=== PATIENT | female | born 1995 | race Caucasian/White ===

== ENCOUNTER 2020-12-12 10:09 | Inpatient (IN) | payer OTHER ==
--- NOTE | 2020-12-13 00:25 | NUR ---
INTERPATH RAPID COVID TEST DONE PER ORDER. COVID TEST COLLEDTED FROM BOTH NARES W/O ISSUE. PT TOLERATED WELL.
[2020-12-13] MEDS ORDERED: PRENATAL VITAM1 EACH PO (01:50)
[2020-12-13] MEDS ORDERED: MAGNESIUM400 MG PO (01:51)
[2020-12-13] MEDS ORDERED: PROMETHAZINE HC25 M1 PO (01:52)
--- NOTE | 2020-12-14 14:11 | NUR ---
12/14/20 1411 Tonia Sinha 1400: PT ARRIVES TO ROOM 103 FOR PACU RECOVERY. DROWSY, VSS. O2 SATS >95% ON RA. RESP EVEN AND UNLABORED. GAONA DRAINING AT THE BEDSIDE
--- NOTE | 2020-12-15 11:58 | OR ---
[facility] [address], [place] [address] Signed DATE OF OPERATION: 12/14/2020 SURGEON: Yosef Molina MD PREOPERATIVE DIAGNOSES: Failure to descend, cephalopelvic disproportion with posterior presentation and non-reassuring heart rate tracing. POSTOPERATIVE DIAGNOSES: Failure to descend, cephalopelvic disproportion with posterior presentation and non-reassuring heart rate tracing. PROCEDURE: Primary low transverse segment section, delivery of live male . AUTOMATION AND CONTROLS MANAGER: Zacarias Urena DO. ANESTHESIA: Epidural. ESTIMATED BLOOD LOSS: 700 mL. COMPLICATIONS: None. DRAINS: Ma to bladder. FINDINGS: Live male , Apgars 8 and 9. Weight 8 pounds 10 ounces. was noted to be in vertex ROP presentation. The 's head was wedged tightly in the pelvis. Normal uterus. Normal tubes and ovaries bilateral. DESCRIPTION OF PROCEDURE: The patient was brought to the operating room, placed in supine position. The patient already had epidural, which was re-dosed and the patient was prepped and draped in usual sterile fashion. The patient already had a Ma catheter in bladder. After verifying adequate anesthesia from the epidural, a Pfannenstiel skin incision was made with a Electronically Signed By: YOSEF MOLINA MD 12/15/20 1158 PATIENT NAME: JOSEFINA BELL OPERATIVE REPORT DATE OF : [birth year] REPORT #: [id number] PHYSICIAN: YOSEF MOLINA MD PCP: NO PRIMARY CARE PHYSICIAN REPORT IS CONFIDENTIAL AND NOT TO BE RELEASED WITHOUT AUTHORIZATION [facility] [address], [place] [address] Signed scalpel. Subcutaneous tissue was dissected with the Bovie. The fascia was nicked with scalpel and extended in transverse fashion using curved scissors. The underlying abdominal musculature was bluntly and sharply from the fascia above and below the incision. The abdominal musculature was bluntly sharply along the midline. The peritoneum was grasped with hemostats, elevated, nicked with curved scissors and extended in a vertical fashion using curved scissors. The Sudhir self-retaining retractor was inserted into the incision and tightened in place. The lower uterine segment was identified. The bladder noted to be below the area of dissection. A small incision was made in the lower uterine segment using a scalpel and the incision extended in transverse fashion using finger dissection. Moderate meconium was seen coming out of the incision. The infant was noted to be in vertex ROP presentation with the head tightly wedged in the pelvis, a hand was carefully brought down above the head and the head elevated and then delivered through the incision. The rest of the infant was easily delivered through the incision. The cord was doubly clamped and cut. The passed off table in good condition to awaiting nurse. The placenta was manually removed and uterine cavity explored with a lap pad to remove any retained membranes. Small extension of the incision was noted on the left side. This was closed using running locking stitch of 0 Monocryl suture. An angle stitch of 0 Monocryl was placed at one in the incision and a running locking stitch of 0 Monocryl then used to close the transverse incision. A 2nd running locking stitch of 0 Monocryl was used to imbricate the 1st layer. The entire pelvis was irrigated, suctioned, and examined, and superficial bleeding spots cauterized with the Bovie. There were some raw areas, but no active bleeding. So, after irrigation, Charlotte was sprinkled over the lower uterine segment to help with hemostasis. The Sudhir retractor was removed and powdered ACell sprinkled over the lower uterine segment to help with healing. The anterior wall peritoneum was then closed using running stitch of 2-0 Vicryl suture. The abdominal musculature was reapproximated using interrupted stitches of 0 Vicryl suture. The abdominal wall incision was irrigated, suctioned, and examined, and any superficial bleeding spots cauterized with the Bovie. There was one small area of muscle that was bleeding on the left side. This was controlled with a pzblqk-lo-jffsh stitch of 0 Vicryl. When good hemostasis was obtained, powdered ACell sprinkled over the abdominal musculature and then the fascia closed using two running stitch of 0 Vicryl suture meeting in the midline. Subcutaneous tissue was irrigated, suctioned, and examined, and any bleeding spots cauterized with the Bovie. The subcutaneous tissue was closed using interrupted stitches of 3-0 Vicryl suture. Skin reapproximated using skin clips. The patient tolerated the procedure well, went to recovery room in good condition. The sponge, needle, and instrument count were correct at the end of the procedure. Electronically Signed By: YOSEF MOLINA MD 12/15/20 1158 PATIENT NAME: JOSEFINA BELL OPERATIVE REPORT DATE OF : [birth year] REPORT #: [id number] PHYSICIAN: YOSEF MOLINA MD PCP: NO PRIMARY CARE PHYSICIAN REPORT IS CONFIDENTIAL AND NOT TO BE RELEASED WITHOUT AUTHORIZATION [facility] [address] [place] [place] [address] Signed MD NICOLE Dewitt/MODL /[id number] Copies: ~ Electronically Signed By: YOSEF MOLINA MD 12/15/20 1158 PATIENT NAME: JOSEFINA BELL OPERATIVE REPORT DATE OF : [birth year] REPORT #: [id number] PHYSICIAN: YOSEF MOLINA MD PCP: NO PRIMARY CARE PHYSICIAN REPORT IS CONFIDENTIAL AND NOT TO BE RELEASED WITHOUT AUTHORIZATION
== END 2020-12-16 13:30 | disposition home or self-care (01) | DRG 788 ==
LOC: FBC 12-13
PROVIDERS: ADMIT General Practice; ATTEND General Practice
PROC: 00HU33Z Insertion of Infusion Device into Spinal Canal, Percutaneous Approach (ICD-10-PCS; 2020-12-13)
PROC: 3E0R3BZ Introduction of Anesthetic Agent into Spinal Canal, Percutaneous Approach (ICD-10-PCS; 2020-12-13)
PROC: 3E0P7VZ Introduction of Hormone into Female Reproductive, Via Natural or Artificial Opening (ICD-10-PCS; 2020-12-13)
PROC: 10D00Z1 Extraction of Products of Conception, Low, Open Approach (ICD-10-PCS; principal; 2020-12-14 13:00)
DX: O33.9 Maternal care for disproportion, unspecified (principal); Z37.0 Single live birth; O32.4XX0 Maternal care for high head at term, not applicable or unspecified; O76 Abnormality in fetal heart rate and rhythm complicating labor and delivery; O77.0 Labor and delivery complicated by meconium in amniotic fluid; Z3A.40 40 weeks gestation of pregnancy; G43.909 Migraine, unspecified, not intractable, without status migrainosus; O99.344 Other mental disorders complicating childbirth; F32.9 Major depressive disorder, single episode, unspecified; F41.9 Anxiety disorder, unspecified; Z79.899 Other long term (current) drug therapy; Z88.5 Allergy status to narcotic agent; Z88.8 Allergy status to other drugs, medicaments and biological substances; Z87.891 Personal history of nicotine dependence
CPT/HCPCS: 01961; 36415; 85027; A9270; C9803; J0690; J2001; J2175; J2274; J2405; J2550; J2590; J2795; J3105; J7121

== ENCOUNTER 2021-01-28 16:45 | Emergency (ER) | payer OTHER ==
[~2021-01-28] VITALS: Ht 170.2 cm; Wt 68.0 kg
[~2021-01-28 16:45] MED LIST: MAGNESIUM400 MG PO; PRENATAL VITAM1 EACH PO; PROMETHAZINE HC25 M1 PO
== END 2021-01-28 20:20 | disposition home or self-care (01) ==
LOC: ED 16:45
DX: R10.32 Left lower quadrant pain (principal); G43.909 Migraine, unspecified, not intractable, without status migrainosus; F17.200 Nicotine dependence, unspecified, uncomplicated; Z88.8 Allergy status to other drugs, medicaments and biological substances; Z88.5 Allergy status to narcotic agent
CPT/HCPCS: 51701; 80053; 81001; 85025; 99284-25; J2405